=== PATIENT | female | born 2000 | race Caucasian/White ===

== ENCOUNTER 2025-04-11 07:27 | Outpatient (CLI) | payer BC, SELFPAY ==
--- NOTE | 2025-04-11 07:33 | US_ITS ---
FINAL REPORT TECHNIQUE: Multiple transverse and longitudinal images CLINICAL HISTORY: RUQ PAIN FINDINGS: Numerous tiny gallstones without acute gallbladder disease. No biliary ductal dilatation is appreciated. No fluid collections are seen. There is fatty infiltration of the liver. There is a 14 mm hypoechoic lesion in the upper liver which is nonspecific. Limited portions of the right kidney are unremarkable. IMPRESSION: Uncomplicated cholelithiasis. Fatty change of liver. 14 mm anterior upper liver lesion, not clearly a cyst. Recommend MRI correlation with contrast. Reviewed, Interpreted and Dictated by Zenon Mendoza MD Transcribed by Vanessa De Anda Authenticated and [facility]
== END 2025-04-11 23:59 | disposition home or self-care (01) ==
LOC: RAD 07:30
PROVIDERS: PCP Family Medicine; Visit Provider Family Medicine
DX: K80.20 Calculus of gallbladder without cholecystitis without obstruction; K76.0 Fatty (change of) liver, not elsewhere classified; K76.9 Liver disease, unspecified
CPT/HCPCS: 76705

== ENCOUNTER 2025-05-01 08:12 | Outpatient (CLI) | payer BC, SELFPAY ==
--- NOTE | 2025-05-01 08:15 | MR_ITS ---
FINAL REPORT TECHNIQUE: Multiplanar and multisequence MR imaging was performed through the abdomen before and after contrast administration. Three-dimensional multiplanar MRCP was performed as well, and was reviewed. CLINICAL HISTORY: NEOPLASM OF UNCERTAIN BEHAVIOR LESION ON LIVER SAW ON ULTRASOUND PT STATED SHE HAS BEEN HAVING GALLBLADDER PROBLEMS WELL 20 ML PROHANCE COMPARISON: Ultrasound of the abdomen 04/16/2025 FINDINGS: LUNG BASES: Clear. LIVER: There is a subtle abnormality in the periphery of the right lobe of the liver seen on T2 weighted images, measuring 9 mm in size. There is localized enhancement after infusion of intravenous contrast, best seen on image #34 of series 21. GALLBLADDER: Multiple gallstones are noted in the gallbladder measuring up to 13 mm in size, as well as small stones and sludge. COMMON BILE DUCT: Normal. SPLEEN: Normal. ADRENAL GLANDS: Normal. PANCREAS: Normal signal intensity. No evidence of acute pancreatitis. No pancreatic ductal dilation. KIDNEYS: No mass. No hydronephrosis. BOWEL: Adequate filling of the small bowel loops. No suspicious bowel edema and no suspicious bowel wall thickening. No definite strictures. No bowel fistulas. No obstruction. The terminal ileum is unremarkable. PERITONEUM/RETROPERITONEUM: No free fluid or free air. LYMPH NODES: No adenopathy. BONES: No aggressive osseous lesion. SOFT TISSUES: Normal. IMPRESSION: Subtle abnormal signal in the periphery of the right lobe of the liver best seen on T2 weighted images, measuring 9 mm in size, likely corresponding to the lesion seen on ultrasound on 04/16/2025. The overall appearance suggests possible flash filling of a hemangioma. Would suggest a follow-up MRI in 1 year with and without contrast. Multiple gallstones are present in the gallbladder measuring up to 13 mm in size, as well as probable small stones and/or sludge. Reviewed, Interpreted and Dictated by Artemio Paige MD Transcribed by Loni Dunham Authenticated and . [facility]
[2025-05-01] MEDS: 0.9 % SODIUM CHLORIDE 50 ML VIAL IV (10:00)
[2025-05-01] MEDS: GADOTERIDOL INJ 20ML SYRINGE 20 ML IV (10:01)
== END 2025-05-01 23:59 | disposition home or self-care (01) ==
LOC: RAD 08:12
PROVIDERS: PCP Family Medicine; Visit Provider Family Medicine
DX: K80.20 Calculus of gallbladder without cholecystitis without obstruction (principal); R93.2 Abnormal findings on diagnostic imaging of liver and biliary tract; D37.6 Neoplasm of uncertain behavior of liver, gallbladder and bile ducts
CPT/HCPCS: 74183; 76376; A9576

== ENCOUNTER 2025-05-09 10:33 | Outpatient (CLI) | payer BC, SELFPAY ==
[2025-05-09 11:07] LABS: Basophils # 0.1 K/mm3 (0-0.2); Basophils % 0.8 % (0.1-2.0); Eosinophils # 0.2 Kmm3 (0.0-0.4); Eosinophils % 2.6 % (0.1-12.0); Hematocrit 45.5 % (37.0-47.0); Hemoglobin 15.2 g/dL (12.2-16.2); Immature Granulocytes # 0.02 10^3uL; Immature Granulocytes % 0.3 %; Lymphocytes # 2.9 K/mm3 (0.7-4.5); Lymphocytes % 40.4 % (10-50); Mean Corpuscular HGB Conc 33.4 g/dL (31.8-35.4); Mean Corpuscular Hemoglobin 28.7 pg (27.0-31.2); Mean Platelet Volume 9.9 fl (7.4-10.4); Monocytes # 0.5 K/mm3 (0.1-1.0); Neutrophils # 3.5 K/mm3 (1.8-7.8); Neutrophils % 48.9 % (37.0-80.0); Nucleated Red Blood Cells # 0 10^3/uL; Nucleated Red Blood Cells % 0 %; Platelet Count 340 K/mm3 (142-424); Red Blood Count 5.29 M/mm3 (4.20-5.40); Red Cell Distribution Width 11.8 % (11.5-17.5); Red Cell Distribution Width-SD 36.8 fL; White Blood Count 7.3 K/mm3 (4.8-10.8)
[2025-05-09 11:18] LABS: Albumin Level 4.5 g/dl (3.5-5.0); Chloride 107 mmol/L (98-107); Potassium 4.2 mmoL/L (3.5-5.1); Sodium 138 mmol/L (136-145)
[2025-05-09 11:21] LABS: Alanine Aminotransferase 23 U/L (12-78); Albumin/Globulin Ratio 1.3 (1.1-1.8); Alkaline Phosphatase 74 U/L (38-126); Anion Gap 12.2 mEq/L (5-15); Aspartate Amino Transferase 28 U/L (14-36); Bilirubin,Total 0.3 mg/dl (0.2-1.3); Blood Urea Nitrogen 12 mg/dl (7-17); Calcium 9.4 mg/dl (8.4-10.2); Carbon Dioxide 23 mmol/L (22.0-30.0); Estimated Glomerular Filt Rate 88 ml/min (>60); GFR (African American) 107 ML/MIN (>60); Globulin 3.4 g/dL (1.3-3.2); Glucose 100 mg/dl (74-100); Total Protein,Serum 7.9 g/dl (6.3-8.2)
[2025-05-09 11:42] LABS: Urine Pregnancy, HCG Qual. Negative (Negative)
== END 2025-05-09 23:59 | disposition home or self-care (01) ==
LOC: PREOP 10:34
PROVIDERS: PCP Family Medicine; Visit Provider Surgery
DX: Z01.812 Encounter for preprocedural laboratory examination (principal); K80.10 Calculus of gallbladder with chronic cholecystitis without obstruction
CPT/HCPCS: 80053; 81025; 85025

== ENCOUNTER 2025-05-15 06:41 | Day surgery (SDC) | payer BC, SELFPAY ==
[2025-05-09 12:49] VITALS: BMI 39.1
[2025-05-15] VITALS (12 sets, daily range): BP systolic 106–169; BP diastolic 70–100; PULSE 67–90; RESP 12–18; TEMP 36.2–36.9; O2SAT 96–100
[2025-05-15] MEDS: LACTATED RINGERS 1000ML 1,000 ML 25 ML IV (07:14)
--- NOTE | 2025-05-15 07:39 | EXP.ANES.CKL ---
[facility] Disclaimer: The information contained in this section may have been updated after the patient was seen, as this information can be updated by other users. Medical History History of anxiety History of hypothyroidism Surgical History History of tonsillectomy Family History Other Family history of kidney disease Social History (Updated 05/15/25 @ 06:56 by Anitha Gaxiola RN) Smoking Status: Current every day smoker tobacco type: e-cigarettes alcohol intake: never substance use type: denies use current occupational status: employed Travel in the last 8 weeks?: None Have you lived/traveled outside [place] in past 30 days?: No Contact w/someone who lives/traveled outside [place] past 30 days?: No Exposure to someone with infectious disease in past 14 days?: No Do you have a fever (greater than 100.4 F or 38 C)?: No Have you tested positive for COVID-19?: No Exposed to someone with COVID-19 in past 14 days?: No Do you have a sore throat?: No Do you have a cough?: No Do you have any weakness?: No Are you experiencing any nausea/vomitting?: No Do you have any diarrhea?: No Are you experiencing any unusual bleeding?: No Do you have any muscle aches/pain?: No Do you have any abdominal pain?: No Are you experiencing loss of taste or smell?: No [facility] Anesthesia Checklist Patient Identification Patient Identification: Arm Band Structural Data Admitted From: Home Planned Operative Procedure/s: Laparoscopic Cholecystectomy Consent for Planned Operative Procedure(s) Verified: Yes Verified Documents: Surgical Consent and History and Physical NPO Status Verified Time NPO: 00:00 Additional verifications Anesthesia Reactions: No Hx Blood Transfusions: No Blood Transfusion Reaction: No Airway Assessment Mallampati Score:: Class II C-Spine Mobility Assessed: Yes TMJ Mobility Assessed: Yes Dentition: Good Dentition Neurological Assessment Level of Consciousness: Awake, Alert and Appropriate Anesthesia Plan Anesthesia Risk discussed: Yes Anesthesia Plan: Verified ASA Class: II Anesthesia Type: General
[2025-05-15] MEDS: SODIUM CHLORIDE IRRIG SOLUTION 3,000 ML 200 ML IR (08:45)
[2025-05-15] MEDS: CEFAZOLIN SODIUM 2 GM in 0.9 % SODIUM CHLORIDE 100 ML IV (08:49)
[2025-05-15] MEDS: ROPIVACAINE 0.5% 30ML VIAL 150 MG (08:49)
[2025-05-15] MEDS: LIDOCAINE 1% 20ML MDV 20 ML (08:49)
--- NOTE | 2025-05-15 09:40 | EXP.OP.NOTE ---
Date of procedure: 05/15/25 Pre-op Diagnosis:: Symptomatic gallstones Post-op Diagnosis:: Same Procedure performed:: Laparoscopic cholecystectomy Surgeon:: John Juarez MD Anesthesia: SANCHO Estimated blood loss (mL): 15 Operative findings:: She had some fatty infiltration of the liver. There was a possible couple of millimeter surface cyst which was not adherent to the liver. She had multiple small gallstones. Operative note:: Consent was obtained patient was taken to the operating room. She was positioned in a supine position. General anesthesia was induced. Abdomen was prepped and draped in the standard surgical fashion. Subumbilical skin incision was made and while performing abdominal wall lift Veress needle was inserted. CO2 pneumoperitoneum was achieved to 15 mmHg. 11 mm optical trocar was inserted at the umbilicus. She was positioned in reverse Trendelenburg and left side down. A couple 5 mm trocars were inserted in the right upper abdomen. 11 mm trocar was inserted in the epigastrium. There was some fatty infiltration of the liver. There appeared to be a tiny, couple millimeter, possible cyst on the anterior right liver. This was not attached and removed with suction. Gallbladder is retracted anteriorly and superiorly over the dome of the liver. Infundibulum of the gallbladder is retracted anterior laterally. Blunt dissection was carried out bluntly incising the visceral peritoneum at the neck of the gallbladder. Ultimately cystic duct and cystic artery were clearly identified and the critical view of safety. The cystic duct was multiply clipped and sharply divided. Cystic artery was coagulated with a's ultrasonic harmonic rc and divided. Gallbladder was dissected free from the liver in a retrograde fashion using a's ultrasonic harmonic rc. Gallbladder was placed within an Endo Catch retrieval device and removed from the peritoneal cavity via the umbilical trocar site which required some stretching of the fascial incision for delivery. Gallbladder was inspected for hemostasis which was assured. Limited irrigation was performed. Trocars were removed and CO2 pneumoperitoneum was evacuated. Fascia at the umbilicus was closed with couple 0 Vicryl sutures. Local anesthetic was infiltrated. Skin incisions were closed with 4-0 Monocryl in a subcuticular fashion. Steri-Strips and dressings were applied. Condition: stable Disposition: PACU Complications:: None immediately apparent
--- NOTE | 2025-05-15 09:50 | P.PNANES_ITS ---
[facility] Anesthesia Record Part I Anesthesia Record I Intake, IV Amount: 1,200 Hydration: Adequate Estimated blood loss (mL): 0 Urine output (mL): 0 Blood Pressure: 152/100 SaO2: 96 Pulse Rate: 82 Airway Patency: Patent Respiratory Rate: 12 Temperature: 97.7 F Patient is:: Awake and Stable Stable to PACU at:: 09:45
--- NOTE | 2025-05-15 11:33 | P.PNANES_ITS ---
[facility] Anesthesia Record Part II Anesthesia Record Part II Discharge Time: 10:15 Destination: Surgical Day Care (OP Surgery) PACU nurse assessment reviewed?: Yes Patient Condition:: Good Anesthesia Complications:: None Swallowing reflex intact?: Yes Airway Patency: Patent Cyanosis?: No Blood Pressure: 138/94 SaO2: 98 Respiratory Rate: 18 Pulse Rate: 72 Temperature: 98.4 F Mental Status: Alert & Oriented Pain level:: 0 Nausea and/or vomitting:: None Intake, IV Amount: 0 Hydration: Adequate
--- NOTE | 2025-05-15 11:35 | EXP.ANES.I ---
[facility] Anesthesia Record Part I Anesthesia Record I Intake, IV Amount: 1,800 Hydration: Adequate Estimated blood loss (mL): 0 Urine output (mL): 0 Blood Pressure: 130/90 SaO2: 99 Pulse Rate: 73 Airway Patency: Patent Respiratory Rate: 14 Temperature: 97.8 F Patient is:: Awake and Stable Stable to PACU at:: 11:35
== END 2025-05-15 11:05 | disposition home or self-care (01) ==
PROVIDERS: PCP Family Medicine; Visit Provider Surgery
PROC: 0FT44ZZ Resection of Gallbladder, Percutaneous Endoscopic Approach (ICD-10-PCS; CPT 47562; principal; 2025-05-15 08:20)
DX: K80.10 Calculus of gallbladder with chronic cholecystitis without obstruction (principal); E03.9 Hypothyroidism, unspecified; F17.290 Nicotine dependence, other tobacco product, uncomplicated; Z79.3 Long term (current) use of hormonal contraceptives; Z79.890 Hormone replacement therapy; Z79.899 Other long term (current) drug therapy
CPT/HCPCS: 47562; 96374; J0690; J1100; J1596; J2003; J2250; J2405; J2704; J2710; J2795; J3010; J7120